=== PATIENT | male | born 1935 | race Caucasian/White ===

== ENCOUNTER → 2019-12-28 | Outpatient (CLI) | payer OTHER ==
[~2019-12-28] VITALS: Ht 182.9 cm; Wt 113.4 kg
[~2019-12-28] MED LIST: APAP500 OR; ASA81BEC PO; CRESTOR10 MG PO; FISH OIL 1,0001 EAC5 PO; MULTIVITAMINS PO; NOHOMEMEDICATIONS; NORCO 5-325 TA1 EACH PO
[2019-12-28 12:33] LABS: HEMATOCRIT 43.4 % (42.0-52.0); HEMOGLOBIN 14.4 gm/dL (14.0-18.0); MCH 31.4 pg (26.0-34.0); MCHC 33.1 g/dL (28.0-37.0); MCV 94.8 fL (80.0-100.0); RBC 4.58 mil/uL (4.50-6.00); RDW 13.6 % (10.5-14.5); WBC 5.1 thou/uL (4.0-11.0)
[2019-12-28 12:42] LABS: INR 1.1; PROTIME 11.2 Seconds (9.3-11.4)
[2019-12-28 12:44] LABS: CALCIUM 8.8 mg/dL (8.5-10.1); CREATININE 0.9 mg/dL (0.7-1.3); POTASSIUM 4.3 mmol/L (3.5-5.1)
[2019-12-28 12:47] LABS: URINE BILIRUBIN NEGATIVE (Negative); URINE BLOOD NEGATIVE (Negative); URINE CLARITY CLEAR; URINE COLOR YELLOW; URINE GLUCOSE-RANDOM* NEGATIVE (Negative); URINE KETONES NEGATIVE (Negative); URINE LEUKOCYTES-REFLEX NEGATIVE (Negative); URINE NITRITE-REFLEX NEGATIVE (Negative); URINE PROTEIN (DIPSTICK) NEGATIVE (Negative); URINE UROBILINOGEN 0.2 E.U./dl (0.2-1.0)
== END ==
LOC: PAC 11:50 → PRE 01-19 10:04 → EDSTATUS 01-19 13:11 → PRE 01-19 19:18
PROVIDERS: Orthopaedic Surgery
DX: M17.11 Unilateral primary osteoarthritis, right knee (principal)